=== PATIENT | male | born 1990 | race African-American/Black ===

== ENCOUNTER 2023-01-16 14:40 | Emergency (ER) | payer OTHER ==
[~2023-01-16] VITALS: Ht 172.7 cm; Wt 80.6 kg
[2023-01-16 14:41] VITALS: BP 124/77
[2023-01-16 15:45] LABS: RSV AMPLIFICATION NEGATIVE (NEGATIVE)
[2023-01-16] MEDS ORDERED: BENZ200C70 PO (21:23)
== END 2023-01-16 21:42 | disposition home or self-care (01) ==
LOC: M ED 14:40
DX: J02.9 Acute pharyngitis, unspecified (principal); F17.200 Nicotine dependence, unspecified, uncomplicated; F12.10 Cannabis abuse, uncomplicated; Z79.811 Long term (current) use of aromatase inhibitors